=== PATIENT | female | born 1985 | race Caucasian/White ===

== ENCOUNTER 2019-11-02 07:38 | Outpatient (CLI) | payer OTHER, SELFPAY ==
--- NOTE | ~2019-11-02 | US_ITS ---
US thyroid INDICATION: Neck fullness by examination. TECHNIQUE: Real-time sonographic images of the thyroid gland were obtained. COMPARISON: No prior studies for comparison. FINDINGS: The right thyroid lobe measures 5.2 x 1.6 x 2.2 cm. The left thyroid lobe measures 4.7 x 0 .9 x 1.2 cm. There is heterogeneous thyroid echotexture bilaterally. There are complex cystic masses in the right lobe. Largest measures 2.7 x 1.7 x 1.6 cm which is mixed cystic and solid, anechoic, wid er than tall, smooth margined and no calcifications, TR 1-benign. The smaller masses next solid and c ystic, wider than tall, smooth margin and no echogenic foci. The mass measures 1.2 x 1.3 x 0.9 cm. Th e solid components or hypoechoic, TR 3 mildly suspicious. There is a solid 12 mm hypoechoic mass whic h is wider than tall, hypoechoic with ill-defined margins and a possible single macrocalcification, T R 4. Recommend follow-up ultrasound in 6-12 months. In the left lobe superiorly there is an 11 x 10 x 4 mm oval hypoechoic mass which is solid, hypoechoi c, wider than tall, smooth margin and no internal echoes, TR 4. IMPRESSION: 1. Multiple bilateral thyroid nodules, most most likely benign multinodular goiter. Recommend follow -up ultrasound in 6-12 months to assess stability. Reviewed, dictated and finalized at location A. IMPRESSION: 1. Multiple bilateral thyroid nodules, most most likely benign multinodular go iter. Recommend follow-up ultrasound in 6-12 months to assess stability.
== END 2019-11-02 07:39 | disposition home or self-care (01) ==
PROVIDERS: Visit Provider Obstetrics & Gynecology
DX: E04.2 Nontoxic multinodular goiter (principal)
CPT/HCPCS: 76536

== ENCOUNTER 2019-12-26 12:37 | Outpatient (CLI) | payer OTHER, SELFPAY ==
[2019-12-26 14:32] LABS: Basophils Absolute Auto 0.1 K/mm3 (0.0-0.1); Basophils Percent Auto 0.4 % (0.2-1.2); Eosinophils Absolute Auto 0.1 K/mm3 (0-0.3); Eosinophils Percent Auto 0.8 % (0-4.4); Hematocrit 40.3 % (37.0-47.0); Hemoglobin 13.5 g/dL (12.0-15.0); Immature Granulocyte Absolute 0.11 K/mm3 (0.00-0.031); Immature Granulocyte Percent A 0.7 % (0-0.5); Lymphocytes Absolute Auto 2.59 K/mm3 (0.9-3.2); Lymphocytes Percent Auto 16.4 % (18.3-44.2); Mean Corpuscular HGB Conc 33.5 g/dl (32-36); Mean Corpuscular Volume 89.6 fl (80-100); Mean Platelet Volume 10.5 fl (7.4-10.4); Monocytes Absolute Auto 1.3 K/mm3 (0.1-0.6); Neutrophils Absolute Auto 11.7 K/mm3 (1.3-6.7); Neutrophils Percent Auto 73.7 % (45.5-73.1); Platelet Count Result 275 k/mm3 (150-375); Red Cell Distribution Width 13.2 % (11.5-14.5); White Blood Count 15.8 K/mm3 (4.5-10.0)
[2019-12-26 14:46] LABS: Glucose 1 Hour PP 50gm Dose 92 mg/dL
[2019-12-26 15:28] LABS: HIV 1/2 Ab P24 Ag Result Negative (Negative)
[2019-12-27 07:21] LABS: Rapid Plasma Reagin Non-Reactive (NonReactive)
== END 2019-12-26 12:38 | disposition home or self-care (01) ==
LOC: ANHLAB 12:39
PROVIDERS: Visit Provider Obstetrics & Gynecology
DX: Z34.90 Encounter for supervision of normal pregnancy, unspecified, unspecified trimester (principal); Z3A.00 Weeks of gestation of pregnancy not specified
CPT/HCPCS: 36415; 82947; 85025; 86592; 86703; G0432

== ENCOUNTER 2020-02-07 16:02 | Outpatient (CLI) | payer OTHER, SELFPAY ==
--- NOTE | ~2020-02-07 | US_ITS ---
EXAMINATION: US OB follow up DATE: 02/07/2020 16:43 INDICATION: Size greater than dates during third trimester TECHNIQUE: Real-time ultrasound of the pelvis was performed. The interpreting radiologist was not pre sent for the study. COMPARISON: None. FINDINGS: There is a single living fetus in vertex presentation. The placenta is fundal. cardia c activity and movement are noted. heart rate is 134 beats per minute (bpm). The amniotic fluid index is 9.8 cm which is normal. The following biometric data were obtained: Biparietal diameter (BPD): 9.0 cm; head circumference (HC): 32.8 cm; abdominal circumference (AC): 32 .0 cm; femur length (FL): 6.8 cm. These measurements are concordant. Estimated weight is 2823 g +/- 423 g, which correlates with the 41st percentile when 03/04/2020 is used as estimated date of delivery. As single measurements, these parameters are each equal to the following estimated gestational ages w ith ranges of +/- 2 standard deviations: BPD: 36 weeks 4 days +/- 3 weeks 1 days. HC: 37 weeks 3 days +/- 2 weeks 5 days. AC: 36 weeks 0 days +/- 3 weeks 0 days. FL: 35 weeks 2 days +/- 3 weeks 0 days. estimated gestational age based solely on measurements from this exam is 36 weeks 2 days +/- 2 weeks 4 days. IMPRESSION: 1. Single living fetus in vertex presentation. 2. Estimated weight is 2823 g +/- 423 g, which correlates with the 41st percentile when 03/04/20 20 is used as estimated date of delivery. 3. Normal amniotic fluid index. Reviewed, dictated and finalized at location A. IMPRESSION: 1. Single living fetus in vertex presentation. 2. Estimated weight is 2823 g +/- 423 g, which correlates with the 41st p ercentile when 03/04/2020 is used as estimated date of delivery. 3. Normal amniotic fluid index.
== END 2020-02-07 16:03 | disposition home or self-care (01) ==
PROVIDERS: Visit Provider Obstetrics & Gynecology
DX: O26.843 Uterine size-date discrepancy, third trimester (principal)
CPT/HCPCS: 76816

== ENCOUNTER 2020-03-02 08:30 | Outpatient (RCR) | payer OTHER, SELFPAY ==
--- NOTE | ~2020-03-02 | US_ITS ---
EXAMINATION: US OB follow up DATE: 03/02/2020 10:02 INDICATION: Postdates. TECHNIQUE: Real-time ultrasound of the pelvis was performed. COMPARISON: Ultrasound 02/07/2020 FINDINGS: There is a single living fetus in vertex presentation. The placenta is fundal and posterior. h eart rate is 161 beats per minute (bpm). The amniotic fluid index is 11.7 cm, which is normal. The following biometric data were obtained: Biparietal diameter (BPD): 9.4 cm; head circumference (HC): 34.5 cm; abdominal circumference (AC): 35 .4 cm; femur length (FL): 6.1 cm. These measurements are discordant with FL/BPD < 5th percentile. Estimated weight is 3249 g +/- 487 g, which correlates with 23rd percentile when 03/03/20 is use d as estimated date of delivery. As single measurements, these parameters are each equal to the following estimated gestational ages: BPD: 38 weeks 3 days. HC: 40 weeks 0 days. AC: 39 weeks 2 days. FL: 31 weeks 4 days. estimated gestational age based solely on measurements from this exam is 37 weeks 2 days +/- 2 weeks 4 days. IMPRESSION: 1. Single living fetus in vertex presentation. 2. Estimated weight is 3249 g +/- 487 g, which correlates with 23rd percentile when 03/03/20 is used as estimated date of delivery. 3. Discordant biometrics with low FL/BPD. Reviewed, dictated and finalized at location A. IMPRESSION: 1. Single living fetus in vertex presentation. 2. Estimated weight is 3249 g +/- 487 g, which correlates with 23rd perc entile when 03/03/20 is used as estimated date of delivery. 3. Discordant biometrics with low FL/BPD.
[2020-03-02 09:22] VITALS: BP 112/73; PULSE 98
--- NOTE | 2020-03-02 10:38 | PC.NURSE ---
Dr Gallegos notified of US results.
== END 2020-03-17 13:46 | disposition home or self-care (01) ==
LOC: ANHOBOP 08:30
PROVIDERS: Visit Provider Obstetrics & Gynecology
DX: O48.0 Post-term pregnancy (principal); Z3A.39 39 weeks gestation of pregnancy
CPT/HCPCS: 59025; 76816

== ENCOUNTER 2020-03-08 18:19 | Inpatient (IN) | payer OTHER, SELFPAY ==
--- NOTE | ~2020-03-08 | XR_ITS ---
EXAMINATION: XR chest 1V portable INDICATION: Desaturation post section TECHNIQUE: Portable AP chest at 1648 hours COMPARISON: None available FINDINGS: The lungs are free of acute opacities. There is no pleural effusion or pneumothorax. The ca rdiomediastinal silhouette is normal. The visualized bones and soft tissues are unremarkable. IMPRESSION: 1. No acute cardiopulmonary abnormality. Reviewed, dictated and finalized at location B.
--- NOTE | 2020-03-08 19:00 | PC.NURSE ---
notations in patients chart about pt having a severe phobia of needles. pt verbally confirmed pt history regarding pt needle phobia. pt educated on plan of care and potentially what iv access would be used for. pt verbally consented for iv insertion and pt requested for pt to help keep pt arm in position during iv insertion.
[2020-03-08 20:00] VITALS: TEMP 37.1
[2020-03-08 20:18] LABS: Basophils Absolute Auto 0.1 K/mm3 (0.0-0.1); Basophils Percent Auto 0.3 % (0.2-1.2); Eosinophils Absolute Auto 0.1 K/mm3 (0-0.3); Eosinophils Percent Auto 0.5 % (0-4.4); Hematocrit 39.1 % (37.0-47.0); Hemoglobin 13.5 g/dL (12.0-15.0); Immature Granulocyte Absolute 0.09 K/mm3 (0.00-0.031); Immature Granulocyte Percent A 0.6 % (0-0.5); Lymphocytes Percent Auto 18.4 % (18.3-44.2); Mean Corpuscular HGB Conc 34.5 g/dl (32-36); Mean Corpuscular Hemoglobin 29.8 pg (26-34); Mean Corpuscular Volume 86.3 fl (80-100); Mean Platelet Volume 10.6 fl (7.4-10.4); Monocytes Absolute Auto 1.1 K/mm3 (0.1-0.6); Monocytes Percent Auto 6.7 % (2.6-8.5); Neutrophils Absolute Auto 11.6 K/mm3 (1.3-6.7); Neutrophils Percent Auto 73.5 % (45.5-73.1); Platelet Count Result 280 k/mm3 (150-375); Red Blood Count 4.53 M/mm3 (4.2-5.4); Red Cell Distribution Width 13.9 % (11.5-14.5); White Blood Count 15.8 K/mm3 (4.5-10.0)
[2020-03-08] MEDS: DINOPROSTONE 10 MG VAG INSERT VAGINAL (20:42)
[2020-03-08 20:59] VITALS: BP 95/68; PULSE 94
[2020-03-08 21:30] VITALS: BP 100/69; PULSE 79
[2020-03-08] MEDS: ZOLPIDEM TARTRATE 5 MG TABLET PO (21:54)
[2020-03-08 22:02] VITALS: BP 101/74; PULSE 93
--- NOTE | 2020-03-08 22:11 | LDADM ---
This patient, Ary Rodriguez, was admitted to Labor/Delivery/Recovery 108 on 03/08/20 at 18:19. Plans for labor, pain management and were discussed with patient. Patient/family oriented to hospital policies and general routines including ID bracelet, bed and alarms, visiting hours, pain management, procedures, bathroom and other care routines, personal items, smoking policy, room service/diet and guest tray routines, security routines, and visiting hours. Patient/Family are encouraged to report perceived risks to care and to ask questions if they do not understand what they are told or what they should do. See OBIX for further documentation.
[2020-03-08 22:30] VITALS: BP 95/59; PULSE 103
[2020-03-08 23:00] VITALS: TEMP 36.5
[2020-03-09] VITALS (219 sets, daily range): BP systolic 77–123; BP diastolic 52–91; PULSE 64–141; TEMP 36.3–37.3; O2SAT 88–100
--- NOTE | 2020-03-09 06:06 | P.PNAN_ITS ---
Anes - Eval Pre Procedure Procedure: labor epidural Date/Time: 03/09/20 06:06 Surgeon: El Preop Diagnosis: labor pain Pre Op Diagnosis: Induction of Labor Patient Data Age: 34 Gender: F Height: Weight: Last Vital Signs Temp 36.4 C L 03/09/20 05:51 Pulse 86 03/09/20 03:38 BP 108/64 03/09/20 03:38 Allergies Allergy/AdvReac Type Severity Reaction Status Date / Time adhesive Allergy Hives Verified 03/02/20 07:47 cat dander Allergy Difficulty Verified 03/02/20 07:47 Breathing thimerosal Allergy Unknown Verified 03/02/20 07:47 Home Medications Medication Instructions Recorded Confirmed Type PNV cmb#95-ferrous fumarate-FA 1 tablet PO DAILY 03/09/20 03/09/20 History [] Laboratory Tests 03/08/20 03/08/20 03/08/20 20:13 20:13 20:13 WBC 15.8 K/mm3 H K/mm3 (4.5-10.0) RBC 4.53 M/mm3 M/mm3 (4.2-5.4) Hgb 13.5 g/dL g/dL (12.0-15.0) Hct 39.1 % % (37.0-47.0) MCV 86.3 fl fl (80-100) MCH 29.8 pg pg (26-34) MCHC 34.5 g/dl g/dl (32-36) RDW 13.9 % % (11.5-14.5) Plt Count 280 k/mm3 k/mm3 (150-375) MPV 10.6 fl H fl (7.4-10.4) Immature Gran % (Auto) 0.6 % H % (0-0.5) Neut % (Auto) 73.5 % H % (45.5-73.1) Lymph % (Auto) 18.4 % % (18.3-44.2) [place] % (Auto) 6.7 % % (2.6-8.5) Eos % (Auto) 0.5 % % (0-4.4) Baso % (Auto) 0.3 % % (0.2-1.2) Lymph # (Auto) 2.90 K/mm3 K/mm3 (0.9-3.2) [place] # (Auto) 1.1 K/mm3 H K/mm3 (0.1-0.6) Eos # (Auto) 0.1 K/mm3 K/mm3 (0-0.3) Baso # (Auto) 0.1 K/mm3 K/mm3 (0.0-0.1) Abs Immat Gran (auto) 0.09 K/mm3 H K/mm3 (0.00-0.031) Absolute Neuts (auto) 11.6 K/mm3 H K/mm3 (1.3-6.7) Absolute Nucleated RBC 0.0 K/mm3 K/mm3 (0.0-0.012) Nucleated RBC % 0.0 % % (0.0-0.2) RPR Pending Blood Type O Positive Antibody Screen Negative Patient hx anesthesia problems: none Family hx anesthesia problems: none Prior Surgeries: [place] teeth extraction PMFSH Social History Social History Smoking status: Never smoker Alcohol intake: former Substance use: never Gender identity (if verbalized by the patient): Female Spiritual care concerns: No Exam Day of Procedure 03/09/20 06:06 Patient weight: overweight Heart: regular rate and rhythm Lungs: clear to auscultation and normal air movement Airway: Mallampati scale class II Neurological: alert and oriented
[2020-03-09] MEDS: LACTATED RINGERS 1,000 ML 125 ML IV CONT ×3 (08:13→14:31)
[2020-03-09] MEDS: AMPICILLIN 2 GM/NS 100 ML 2 GM/100 ML BAG IVPB (08:16)
--- NOTE | 2020-03-09 08:34 | PM.IMHP ---
H&P: HPI History of Present Illness Chief complaint: Induction of Labor Narrative: Ary Rodriguez is a 34 year old female at 40 6 with an EDC 03/02/20 by LMP 05/27/19 admitted for [facility] for post dates. U/S 08/19/19 12w1 03/01/20 consistent with EDC by LMP. Normal anatomy scan Mar. Last ultrasound 7lbs. PNC significant for severe needle phobia which she has had counseling and hyponotherapy which has not been successful. Has a goiter. Normal thyroid testing. Labs: Pap nl TSH nl, Hgbelec-nl, RPR-NR, Ur Cul-neg, Rub-NI, Varic-IM, O+, Ab neg, UA-neg, HIV neg.Hepbsag neg, Hep c ab neg. She has been informed of risk benefit of induction. She desires induction of labor. Review of Systems Review of Systems: All systems reviewed & are unremarkable except as noted in HPI and below Constitutional: Constitutional: Reports no additional constitutional complaints and Denies headache(s) Eyes: Eyes: Denies spots in vision ENT: Reports system reviewed and no additional complaints, except as documented and Denies headache(s) Cardiovascular: Cardiovascular: Denies chest pain and Denies dyspnea Respiratory: Respiratory: Denies dyspnea Gastrointestinal: Gastrointestinal: Reports no additional gastrointestinal complaints Genitourinary: Genitourinary: Reports amenorrhea Musculoskeletal: Musculoskeletal: Reports no additional musculoskeletal complaints Integumentary/Breasts: Skin/Breast: Denies breast mass and Denies rash Neurologic: Denies headache(s) Psychiatric: Psychiatric: Reports no additional psychiatric complaints COUNT INCLUDES THE [facility] Social History Social History Smoking status: Never smoker Alcohol intake: former Substance use: never Gender identity (if verbalized by the patient): Female Spiritual care concerns: No Meds Home Medications and Allergies Home Medications Medication Instructions Recorded Confirmed Type PNV cmb#95-ferrous fumarate-FA 1 tablet PO DAILY 03/09/20 03/09/20 History [] Allergies Allergy/AdvReac Type Severity Reaction Status Date / Time adhesive Allergy Hives Verified 03/02/20 07:47 cat dander Allergy Difficulty Verified 03/02/20 07:47 Breathing thimerosal Allergy Unknown Verified 03/02/20 07:47 Vital Signs Vital Signs - 24 hr 03/08/20 20:00 03/08/20 20:59 03/08/20 21:30 Temperature 98.7 F Pulse Rate 94 79 Blood Pressure 95/68 L 100/69 03/08/20 22:02 03/08/20 22:30 03/08/20 23:00 Temperature 97.7 F Pulse Rate 93 103 H Blood Pressure 101/74 95/59 L 03/09/20 00:49 03/09/20 03:35 03/09/20 03:38 Temperature 98.1 F Pulse Rate 95 86 Blood Pressure 105/71 108/64 03/09/20 05:51 03/09/20 07:00 03/09/20 07:10 Temperature 97.5 F L 97.5 F L Pulse Rate 94 Blood Pressure 115/79 Exam Const: General: no acute distress Eyes: General: appearance normal, both eyes and all related structures Resp: Effort & Inspection: normal respiratory effort Cardio: Rate: regular rate GI: Other: Gravid no fundal tenderness no right upper quadrant pain : Manual OB Exam: Not dilated nor effaced Skin: General skin exam: no rashes or lesions noted Neuro: Cognition (Neuro): normal cognition Extrem: General: normal to inspection Psych: Mental Status: mental status grossly normal H&P: Results Labs Labs: Short CBC 03/08/20 Range/Units 20:13 WBC 15.8 H (4.5-10.0) K/mm3 Hgb 13.5 (12.0-15.0) g/dL Hct 39.1 (37.0-47.0) % Plt Count 280 (150-375) k/mm3 Assessment and Plan Assessment and plan (1) Post-dates : Code(s): O48.0 - Post-term Status: Acute Assessment and Plan: 1. Admit 2. Cervidil then Pitocin. 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
--- NOTE | 2020-03-09 08:38 | P.PNOB_ITS ---
OB - PN: Subj Subjective Date/time seen: 03/09/20 08:38 FHT 120, Cat 1, frequent ctx, cervix 60/-3. Start Pitocin. Continue Ampicillin. OB - PN: Obj Data Labs CBC & Chem 7: 03/08/20 20:13 Labs: Laboratory Results - last 24 hr 03/08/20 03/08/20 20:13 20:13 WBC 15.8 H RBC 4.53 Hgb 13.5 Hct 39.1 MCV 86.3 MCH 29.8 MCHC 34.5 RDW 13.9 Plt Count 280 MPV 10.6 H Immature Gran % (Auto) 0.6 H Neut % (Auto) 73.5 H Lymph % (Auto) 18.4 [place] % (Auto) 6.7 Eos % (Auto) 0.5 Baso % (Auto) 0.3 Lymph # (Auto) 2.90 [place] # (Auto) 1.1 H Eos # (Auto) 0.1 Baso # (Auto) 0.1 Abs Immat Gran (auto) 0.09 H Absolute Neuts (auto) 11.6 H Absolute Nucleated RBC 0.0 Nucleated RBC % 0.0 Blood Type O Positive Antibody Screen Negative OB - PN A/P Time Spent With Patient Time: Total time spent is greater than 50% in coordination of care (as documented) at patient's floor/unit and/or counseling patient:
[2020-03-09] MEDS: OXYTOCIN 30 UNITS/NS 500 ML 30 UNITS/500 ML BAG 4 UNITS IV CONT (09:02)
[2020-03-09 10:06] LABS: Rapid Plasma Reagin Non-Reactive (NonReactive)
[2020-03-09] MEDS: AMPICILLIN 1 GM/NS 50 ML 1 GM/50 ML BAG IVPB ×2 (12:35→16:40)
--- NOTE | 2020-03-09 12:37 | WPDANESEPP ---
Anes - Eval Pre Procedure Procedure: labor epidural Date/Time: 03/09/20 12:37 Pre Op Diagnosis: Induction of Labor Patient Data Age: 34 Gender: F Height: Weight: Last Vital Signs Temp 37.1 C 03/09/20 11:31 Pulse 98 03/09/20 12:00 BP 98/61 L 03/09/20 12:00 Allergies Allergy/AdvReac Type Severity Reaction Status Date / Time adhesive Allergy Hives Verified 03/02/20 07:47 cat dander Allergy Difficulty Verified 03/02/20 07:47 Breathing thimerosal Allergy Unknown Verified 03/02/20 07:47 Home Medications Medication Instructions Recorded Confirmed Type PNV cmb#95-ferrous fumarate-FA 1 tablet PO DAILY 03/09/20 03/09/20 History [] Laboratory Tests 03/08/20 03/08/20 03/08/20 20:13 20:13 20:13 WBC 15.8 K/mm3 H K/mm3 (4.5-10.0) RBC 4.53 M/mm3 M/mm3 (4.2-5.4) Hgb 13.5 g/dL g/dL (12.0-15.0) Hct 39.1 % % (37.0-47.0) MCV 86.3 fl fl (80-100) MCH 29.8 pg pg (26-34) MCHC 34.5 g/dl g/dl (32-36) RDW 13.9 % % (11.5-14.5) Plt Count 280 k/mm3 k/mm3 (150-375) MPV 10.6 fl H fl (7.4-10.4) Immature Gran % (Auto) 0.6 % H % (0-0.5) Neut % (Auto) 73.5 % H % (45.5-73.1) Lymph % (Auto) 18.4 % % (18.3-44.2) [place] % (Auto) 6.7 % % (2.6-8.5) Eos % (Auto) 0.5 % % (0-4.4) Baso % (Auto) 0.3 % % (0.2-1.2) Lymph # (Auto) 2.90 K/mm3 K/mm3 (0.9-3.2) [place] # (Auto) 1.1 K/mm3 H K/mm3 (0.1-0.6) Eos # (Auto) 0.1 K/mm3 K/mm3 (0-0.3) Baso # (Auto) 0.1 K/mm3 K/mm3 (0.0-0.1) Abs Immat Gran (auto) 0.09 K/mm3 H K/mm3 (0.00-0.031) Absolute Neuts (auto) 11.6 K/mm3 H K/mm3 (1.3-6.7) Absolute Nucleated RBC 0.0 K/mm3 K/mm3 (0.0-0.012) Nucleated RBC % 0.0 % % (0.0-0.2) RPR Non-reactive (NonReactive) Blood Type O Positive Antibody Screen Negative Patient hx anesthesia problems: none Family hx anesthesia problems: none PMFSH Social History Social History Smoking status: Never smoker Alcohol intake: former Substance use: never Gender identity (if verbalized by the patient): Female Spiritual care concerns: No Exam Day of Procedure 03/09/20 12:37
[2020-03-09] MEDS: PHENYLEPHRINE 1,000 MCG/10 ML SYRINGE 100 MCG IV PUSH (13:29)
--- NOTE | 2020-03-09 16:38 | PM.OBPNVD ---
OB - PN: Subj Subjective Date/time seen: 03/09/20 16:38 FHT 130, ctx q 1-4, irreg, frequent, cervix /-2 AROM clear, attempted IUPC but catheter would not advance. Continue Pitocin. She has received two doses Ampicillin. OB - PN: Obj Data Labs CBC & Chem 7: 03/08/20 20:13 Labs: Laboratory Results - last 24 hr 03/08/20 03/08/20 03/08/20 20:13 20:13 20:13 WBC 15.8 H RBC 4.53 Hgb 13.5 Hct 39.1 MCV 86.3 MCH 29.8 MCHC 34.5 RDW 13.9 Plt Count 280 MPV 10.6 H Immature Gran % (Auto) 0.6 H Neut % (Auto) 73.5 H Lymph % (Auto) 18.4 [place] % (Auto) 6.7 Eos % (Auto) 0.5 Baso % (Auto) 0.3 Lymph # (Auto) 2.90 [place] # (Auto) 1.1 H Eos # (Auto) 0.1 Baso # (Auto) 0.1 Abs Immat Gran (auto) 0.09 H Absolute Neuts (auto) 11.6 H Absolute Nucleated RBC 0.0 Nucleated RBC % 0.0 RPR Non-reactive Blood Type O Positive Antibody Screen Negative OB - PN A/P Time Spent With Patient Time: Total time spent is greater than 50% in coordination of care (as documented) at patient's floor/unit and/or counseling patient:
[2020-03-10] VITALS (291 sets, daily range): BP systolic 67–129; BP diastolic 21–92; PULSE 68–242; RESP 16–21; TEMP 36.2–37.4; O2SAT 87–100
[2020-03-10] MEDS: AMPICILLIN 1 GM/NS 50 ML 1 GM/50 ML BAG IVPB ×4 (00:01→12:53)
[2020-03-10] MEDS: ONDANSETRON INJ 4 MG/2 ML VIAL IV PUSH (00:01)
[2020-03-10] MEDS: LACTATED RINGERS 1,000 ML 125 ML IV CONT ×3 (00:02→11:41)
--- NOTE | 2020-03-10 07:41 | PM.OBPNVD ---
OB - PN: Subj Subjective Date/time seen: 03/10/20 07:41 FHT 130, Cat1, ctx q 2-5, cervix, ant lip, 90% effaced, 0 station. Continue Pitocin. OB - PN: Obj Data Labs CBC & Chem 7: 03/08/20 20:13 Labs: Laboratory Results - last 24 hr 03/08/20 20:13 RPR Non-reactive OB - PN A/P Time Spent With Patient Time: Total time spent is greater than 50% in coordination of care (as documented) at patient's floor/unit and/or counseling patient:
--- NOTE | 2020-03-10 13:38 | PM.OBPNVD ---
OB - PN: Subj Subjective Date/time seen: 03/10/20 13:38 FHT 140, Cat 2, ant lip/ large caput, OT. Discussed diagnosis of failure to progress. She has not had any further dilation in 6 hours. Recommend cesearean section for failure to dilate. Discussed risk benefits of cesearean section and risk of continuing pitocin. We did discuss during her care risk that if she has a cesearean section then she wants a tubal ligation. I today discussed risk of tubal ligation again to include failure, ectopic , risk of regret. She does not want the chance of an ectopic . I discussed with her that other options. She declined tubal and wants to get vasectomy. Will proceed with primary cesearean section for failure to progress. OB - PN: Obj Data Labs CBC & Chem 7: 03/08/20 20:13 OB - PN A/P Time Spent With Patient Time: Total time spent is greater than 50% in coordination of care (as documented) at patient's floor/unit and/or counseling patient:
[2020-03-10] MEDS: ceFAZolin 2 GM/D5W 50 ML 2 GM/50 ML BAG IVPB (13:47)
[2020-03-10] MEDS: MORPHINE SULFATE 2 MG/ML INJ 1 MG IV PUSH ×2 (15:43→15:52)
[2020-03-10] MEDS: MEPERIDINE HCL INJ 50 MG/ML AMPUL IV PUSH (16:13)
--- NOTE | 2020-03-10 16:15 | P.OP_ITS ---
Procedure Note - Detailed Date of procedure: 03/10/20 Pre-op diagnosis: Induction of Labor 1. Failure to dilate Post-op diagnosis: same Procedure performed: Primary low transverse cesearean Description of procedure: After informed consent was obtained. Patient was taken to OR. Epidural anesthesia was dosed and she was placed in supine position and prepped and draped in sterile fashion. She had appropriate analgesia to umbilicus .Attention was turned to abdomen and a Pfannestiehl skin incision was made with scalpel. Subcutaneous tissue was incised and disssected down to fascia. Fascia was incised in the midline and extended bilaterally with scissors. Rectus muscle was from fascia superiorly and inferiorly bluntly and sharply. The midline was identified and entered superiorly. The pelvic organs were visualized. The bladder was distended. The bladder was retracted and an incision was made in the anterior vesicouterine periotoneum and the bladder was dissected anteriorly from the lower uterine segment. A low transverse uterine incision was made with the scalpel. The amniotic sac was entered. Clear fluid obtained. The head was delivered. The rest of the infant was delivered. The infant was vigorously crying on delivery and the cord was doubly clamped and cut and the infant was handed to nursery staff in attendance. Cord segment was obtained. Cord blood was obtained. The placenta was delivered manually. The uterine cavity was sponge curretted. The uterine incision was closed with O vicryl in a running locking fashion. A second umbricating stitch with O vicryl was used. Hemostasis was noted. She did have uterine atony bilateral compression was used and anesthesia was instructed to give her 0.2mg IM Methergine. This did improve but body of uterus became boggy again and she was given 1000mcg cytotec rectally. Uterine tone improved. I instructed nursing staff to instill saline with methylene blue in bladder since it appeared distended on entrance. Approximately 300cc instilled. No methylene blue seen in abdomen. The posterior cul de sac and paracolic gutters were irrigated. Uterus placed back into abdomen. Muscle bellies inspected and were hemostatic. Fascia closed with 2 sutures of O vicryl. A figure of eight stitch used to enforce an area at the fascia. Hemostasis noted. Subcutaneous tissue irrigated. Skin incision closed in a subcutaneous fashion with 4.0 vicryl. Derm abond placed. Uterus firm at umbilicus. Sponge count correct x 3. Patient tolerated procedure and was taken to recovery. She delivered a male , 8lb 13 oz. Anesthesia: epidural Surgeon: Jon Gallegos MD Estimated blood loss (mL): 815 Drains: No Packing: No Pathology: yes (Placenta and cord, placenta very calcified. True knot in cord.) Complications: No immediate complications Condition: stable Disposition: floor Findings: Infant in OT position. Male 8lb 15oz. Normal fallopian tubes and ovaries. Placenta very calcified.
--- NOTE | 2020-03-10 16:32 | PM.OBPNVD ---
OB - PN: Subj Subjective Date/time seen: 03/10/20 16:32 Called due to patient having decrease in O2Sat to 85% when she went sleep. She states it feels like she needs to need and can't. Urine out put good. On exam has some coarse breath sounds/crackles upper left chest. Clear lower. Will give 40 IV Lasix. EKG ordered. CXR. Resp therapy for Incentive spirometer. Denies leg pain. OB - PN: Obj Data Labs CBC & Chem 7: 03/08/20 20:13 OB - PN A/P Time Spent With Patient Time: Total time spent is greater than 50% in coordination of care (as documented) at patient's floor/unit and/or counseling patient:
--- NOTE | 2020-03-10 16:35 | ECG_ITS ---
Measurements Intervals [place] Rate: 81 P: 63 AR: 165 QRS: 70 QRSD: 94 T: 51 QT: 363 QTc: 423 Interpretive Statements SINUS RHYTHM BASELINE WANDER- I, II, III, AVR, AVF, V1, V6 BORDERLINE ECG Electronically Signed On 03-10-2020 17:55:16 CDT by Abelino Dill D.O.
[2020-03-10] MEDS: FUROSEMIDE INJ 40 MG/4 ML VIAL IV PUSH (16:45)
[2020-03-10] MEDS: OXYTOCIN 30 UNITS/NS 500 ML 30 UNITS/500 ML BAG 4 UNITS IV CONT (16:51)
--- NOTE | 2020-03-10 18:41 | PC.NURSE ---
Arrived in pacu at 1509, patient not arousable, on 5 L of 02 per non rebreather. Vitals stable. at 1524, patient moaning, crying, shaking with pain. Morphine 1 mg given at 1547, and 1 mg given at 1552. Pain not decreasing after administration. Demerol 50 given at 1613. Around 1630, patient sats 85-89, Dr. Gallegos called to room. Lung sounds crackles. Patient states she isnt short of breath. Orders for incentive spirometry, EKG and chest x ray stat, 40 mg lasix IV once. Lasix given at 1645. urine 1250 emptied at 1655. DERRICK OPERATOR ordered for patient pain. 1700 Patient sats increasing to 90's on 5 l non rebreather now. 1723- DERRICK OPERATOR started. 1730, nasal cannula placed on patient, 02 sats staying in 90's on 2 L per nasal cannula. 1800- urine 1200 emptied, underpads changed. oxygen decreased to 1L per nasal cannula. Report given to YESIKA Baer on .
[2020-03-10] MEDS: DEXTROSE 5%/0.45% SOD CHL 1,000 ML 125 ML IV CONT (21:00)
--- NOTE | 2020-03-10 22:42 | PC.NURSE ---
03/10/20 @ 1902 Mom arrived to floor via stretcher, transferred to hospital bed via maxi air with 3 nurses. Infant arrived via crib pushed by dad along with personal belongings. Oriented to room, call light, admission packet reviewed and call light within reach. Stefanie NAPOLES
[2020-03-11 00:15] VITALS: BP 107/73; PULSE 87; RESP 18; O2SAT 96
[2020-03-11 02:50] VITALS: RESP 20; O2SAT 97
[2020-03-11] MEDS: KETOROLAC 30 MG/ML VIAL (*BKC) IV PUSH (03:01)
--- NOTE | 2020-03-11 04:14 | PC.NURSE ---
03/10/20 2100 Patient encouraged to reposition in bed, she declines, also declines any use of COUNTY CORONER or other pain medications. She did use her incentive spirometer. Stefanie NAPOLES 03/10/20 2300 Patient again encouraged to reposition in bed, she declines, did sit up in bed, SCD's remain on. Incentive spirometer used. Call light in reach. Stefanie NAPOLES 03/11/20 0130 Patient denies any pain or use of COUNTY CORONER pump. States she doesn't want to use it, it made her feel groggy. Offered to sit up for awhile, she states she is afraid to move, encouraged incentive spirometer every 2 hours. VSS. Call light in reach. Stefanie NAPOLES 03/11/20 0250 Urine output is good, tolerating po fluids, IV fluids stopped, Fentanyl COUNTY CORONER discontinued with no use at all, patient does not want to use it. IV saline locked. Patient encouraged to get up but she is afraid to move. Discussed trying Toradol and she agrees. Stefanie NAPOLES 03/11/20 0301 Toradol give IVP, patient very anxious about IV use and almost tearful but tolerated it. Stefanie NAPOLES 03/11/20 0400 Patient feeling better and agreeable to get up in chair with assist of 2 RN's. She tolerated it well and feels much better getting up. Incentive spirometer use encouraged again. Patient also has an order for a CBC and she absolutely declines. states the doctor had mentioned getting labs through IV previously. Patient states she has enough blood and she's feeling fine. She is very anxious about any needles. Offered smallest needle available and she still declines, she and will discuss lab draw with Dr. Gallegos this am. Stefanie NAPOLES
[2020-03-11 04:15] VITALS: BP 97/62; PULSE 80; RESP 18; TEMP 36.8; O2SAT 96
--- NOTE | 2020-03-11 07:37 | WPDANLDPN2 ---
Anes-Prog Note L&D Date/Time: 03/11/20 07:37 Comfortable throughout: labor and delivery Epidural/Spinal procedure site: clean & non-tender Neuro status: Neuro function grossly intact. Cardiovascular status: normal Respiratory status: normal Airway patency: baseline Mental status: baseline Post-Op hydration status: normal Vital Signs: Last Vital Signs Temp 36.8 C 03/11/20 04:15 Pulse 80 03/11/20 04:15 Resp 18 03/11/20 04:15 BP 97/62 L 03/11/20 04:15 Pulse Ox 96 03/11/20 04:15 I/O: Intake & Output 03/10/20 03/10/20 03/11/20 15:59 23:59 07:59 Intake Total 3450 891 0348 Output Total 3917 2150 Balance 1949 -3112 -001 Post-procedural complaints: none Patient feedback: Patient satisfied with anesthetic care.
--- NOTE | 2020-03-11 07:37 | WPDANLDNPN2 ---
Anes-Prog Note L&D-Neuraxial Date/Time: 03/11/20 07:37 Neuraxial medications: intrathecal PF morphine Opiod-related complaints: none Patient feedback: Patient satisfied with post-operative pain management.
[2020-03-11 08:10] VITALS: BP 94/70; PULSE 88; RESP 16; TEMP 36.2; O2SAT 96
[2020-03-11] MEDS: ACETAMINOPHEN 325 MG TABLET 650 MG PO ×3 (09:13→23:30)
[2020-03-11] MEDS: IBUPROFEN 600 MG TABLET PO ×3 (09:14→23:30)
[2020-03-11] MEDS: DOCUSATE SODIUM 100 MG CAPSULE PO ×2 (09:15→15:56)
[2020-03-11] MEDS: SIMETHICONE 80 MG TAB.CHEW PO ×3 (09:17→23:32)
[2020-03-11 11:15] VITALS: BP 96/62; PULSE 87; RESP 16; TEMP 36.6; O2SAT 97
--- NOTE | 2020-03-11 11:45 | PC.NURSE ---
Consult with pt., mother reports she may wish to attempt infant to breast at some time this afternoon. Mother states she is unsure if she wants to breastfeed or she may pump and bottle feed. Discussed initiating pumping to stimulate milk supply. Mother states she will call out for assist when she decides.
--- NOTE | 2020-03-11 13:09 | PM.OBPNVD ---
OB - PN: Subj Subjective Date/time seen: 03/11/20 0745 She states her pain control is doing well, has sat up in chair, no flatus. Tolerating liquids. No lightheadedness /dizziness. No SOB No chest pain. OB - PN: Obj Data Labs CBC & Chem 7: 03/08/20 20:13 Imaging Radiologist's impression: Impressions Chest X-Ray 03/10/20 16:50 IMPRESSION: 1. No acute cardiopulmonary abnormality. OB - PN A/P Assessment and Plan (1) care following delivery: Code(s): Z39.2 - Encounter for routine follow-up Status: Acute Assessment and Plan: POD1. S/p Primary c/section for failure to progress. She has adequate pain control. She refused getting a CBC. I discussed with her why a post op cbc is ordered and risk of not having the value. She still doesn't want it done. She is urinating well. Will give oral pain medication. Encourage ambulation. Continue liquid diet until flatus. Time Spent With Patient Time: Total time spent is greater than 50% in coordination of care (as documented) at patient's floor/unit and/or counseling patient: Exam Const: General: comfortable and no acute distress Resp: Effort & Inspection: normal respiratory effort Auscultation: clear to auscultation bilaterally Cardio: Rate: regular rate GI: Other: active bowel sounds, sligthly distended, incision no drainage or erythema, intact Extrem: Other: 2+ edema bilat, neg brandy's bilaterally Psych: Mental Status: mental status grossly normal Affect: normal affect
[2020-03-11 19:18] VITALS: BP 105/73; PULSE 89; RESP 16; TEMP 36.4; O2SAT 96
[2020-03-12 07:50] VITALS: BP 102/67; PULSE 72; RESP 16; TEMP 36.6; O2SAT 98
--- NOTE | 2020-03-12 09:05 | PC.NURSE ---
Addendum entered by Dolores Pérez RN 03/17/20 10:02: time done at 1010 Original Note: Mother called out for assist with latching. Demonstrated stimulation techniques to wake for feeding. Assisted with to breast. Reviewed positioning/alignment in cross cradle, holding breast in U hold and guided asymmetrical latch on. Several attempts before infant was able to latch correctly. nursed eagerly, with steady draws and frequent swallowing noted, with long pausing. Reviewed signs of a correct latch, effective nursing and suck swallow ratio. Infant was able to maintain latch without discomfort to mother. Nipple care reviewed. Advised to stimulate to keep awake and nursing effectively for increased intake and assist with maintaining deep latch. Demonstrated how to adjust latch more deeply while feeding.
--- NOTE | 2020-03-12 09:50 | PC.NURSE ---
Mother called out and states she will mostly likely pump and bottle feed. Assisted mother with her Spectra breast pump.. Instructions given on breast pump care and usage, pumping schedule, nipple care, and collection and storage of breast milk. Encouraged [id number], breast massage and manual expression to stimulate supply. Pumping log provided and reviewed. Assessed patient for correct flange size, placement and draw. Patient verbalizes and demonstrates understanding of instructions.
[2020-03-13 13:44] VITALS: BP 119/77; PULSE 72; RESP 20; TEMP 36.4; O2SAT 99
--- NOTE | 2020-04-02 07:46 | PM.OBDSVD ---
DS: Admitting Diagnosis Admitting Diagnosis Admitting Diagnosis: Induction of Labor DS: Discharge Diagnosis Discharge Diagnosis (1) Failure to progress in labor: Code(s): O62.2 - Other uterine inertia Status: Acute OB - DS: Summary OB Procedures : Ultrasound OB Procedures Intrapartum: low cervical, transverse OB Procedures: : None Peripartum Data Procedures: Procedures Operation Date: 03/10/20 13:45 Actual Procedures Side Surgeon p Section Jon Gallegos MD Time Spent with Patient Time attestation: Total time spent providing and/or coordinating discharge services: Exam Const: General: comfortable and no acute distress Resp: Effort & Inspection: normal respiratory effort GI: Other: Incision healing well no drainage Extrem: Other: nontender bilaterally, 1+ edema bilat Psych: Mental Status: mental status grossly normal Affect: normal affect DS: Data Data Completed and Pending Completed studies during hospitalization: Pending at discharge 03/10/20 14:11 Surgical [PTH] Routine Discharge Plan Discharge Attending physician on discharge: Jon Gallegos Consulting providers: Abelino Dill ; Antonio Feliz Discharging Clinician: Jon Gallegos Anticipated Discharge Date/Time: 03/12/20 11:09 Patient Disposition: Home, Self-Care Activity: no straining, may drive after 2 weeks and pelvic rest Diet: regular Discharge Instructions: Pelvic rest for 6 weeks. Call for temperature >100.4, drainage or redness from incision, leg pain,redness,. Follow up in one week. No lifting more than ten pounds. May take over the counter Ibuprofen 600mg every 6 hours as needed and/or Tylenol. Education: Mom and Baby Guide Given to: Mother Follow-Up: Call your delivering provider's office for an appointment to be seen. Mom and baby should come to the [facility] for the follow-up appointment. Appointment Date/Time: March 13, 2020 at 8:00 am What to expect at your follow-up visit: Physical Assessment Call [phone] if you are unable to keep your appointment time. BREAST CARE: * Wear a snug supportive bra. * For engorgement discomfort: Breast Feeding: * Apply warm moist washcloths * Express milk as needed to relieve engorgement * Wear loose clothing * For sore nipples: * Identify correct latch-on * Apply warm moist washcloths before and after nursing * Air dry nipples after nursing * May apply Lansinoh cream to nipples ABDOMINAL INCISION: * Allow incision to air dry * Do NOT use lotions for powders on your incision * When showering, allow soap and water to run over the incision, but do not wash incision EPISIOTOMY/PERINEAL CARE: * Until bleeding stops, use your jennie bottle after urinating * Change your pad frequently throughout the day * No tub baths until seen by your physician - You may shower ACTIVITY: * Rest as much as possible. * Do not exercise or lift anything heavier than your baby (such as laundry or other children.) * Avoid stairs or driving as much as possible. * Do not put anything into the vagina. No douching, tampons, or sexual activity until seen by physician. NOTIFY PHYSICIAN IF YOU HAVE ANY QUESTIONS OR IF ANY OF THE FOLLOWING SYMPTOMS OCCUR: * If your incision becomes red, swollen, or more painful than what you have experienced in the hospital. * If your vaginal bleeding becomes foul smelling. * If your vaginal bleeding becomes more heavy than a period or if your bleeding changes from pink to bright red. However, you may pass an occasional walnut-sized clot once or twice for the first week . * If you experience a sharp, shooting pain in you calves. * If you discover a hard, reddened area on your breast or if you experience flu-like symptoms. DIET: * Eat regular, well-balanced meals. * Drink plenty of fluids daily. If breast
== END 2020-03-12 15:12 | disposition home or self-care (01) | DRG 788 ==
LOC: ANHLDR 03-10 16:37 → ANHOB2 03-10 19:06
PROVIDERS: Admitting Provider Obstetrics & Gynecology; Visit Provider Obstetrics & Gynecology
PROC: 10D00Z1 Extraction of Products of Conception, Low, Open Approach (ICD-10-PCS; CPT 59514; principal; 2020-03-10 13:45)
DX: O48.0 Post-term pregnancy (principal); Z37.0 Single live birth; Z3A.41 41 weeks gestation of pregnancy; O99.824 Streptococcus B carrier state complicating childbirth; O69.2XX0 Labor and delivery complicated by other cord entanglement, with compression, not applicable or unspecified; O99.284 Endocrine, nutritional and metabolic diseases complicating childbirth; E04.9 Nontoxic goiter, unspecified; O62.0 Primary inadequate contractions; O62.2 Other uterine inertia
CPT/HCPCS: 36415; 71045; 85025; 86592; 86850; 86900; 86901; 88307; 93005; A9270; J0290; J0690; J1885; J1940; J2175; J2210; J2270; J2274; J2370; J2405; J2590; J2704; J2795; J3010; J7120; Q9968

== ENCOUNTER 2020-10-27 16:35 | Outpatient (CLI) | payer OTHER, SELFPAY ==
--- NOTE | ~2020-10-27 | US_ITS ---
EXAMINATION: US thyroid DATE: 10/27/2020 17:24 INDICATION: Multinodular goiter. TECHNIQUE: Multiple ultrasound images of the thyroid were obtained. COMPARISON: Ultrasound 11/02/2019 FINDINGS: The right thyroid lobe measures 5.4 x 2.4 x 1.9 cm. The left thyroid lobe measures 4.9 x 1.5 x 1.2 c m. In the right thyroid lobe, there is a 3.1 cm almost completely cystic nodule (TI-RADS TR1). In th e right thyroid lobe, there is a 12 mm mixed cystic and solid, hypoechoic, [id number]-[id number] nodule wit h lobulated margin without echogenic foci (TR4). In the left thyroid lobe, there is a 10 mm almost co mpletely solid, hypoechoic, [id number] nodule with lobulated margin without echogenic foci (TR4) . There are multiple subcentimeter nodules in the thyroid. IMPRESSION: 1. Multinodular goiter. Thyroid ultrasound is recommended in one year. Reviewed, dictated and finalized at location A.
== END 2020-10-27 16:36 | disposition home or self-care (01) ==
PROVIDERS: Visit Provider Obstetrics & Gynecology
DX: E04.2 Nontoxic multinodular goiter (principal)
CPT/HCPCS: 76536

== ENCOUNTER → 2021-03-09 00:41 | Outpatient (CLI) | payer OTHER, SELFPAY ==
[2021-03-09 20:36] LABS: SARS-CoV-2 RNA PCR Negative
== END ==
PROVIDERS: Visit Provider Obstetrics & Gynecology
DX: Z20.822 Contact with and (suspected) exposure to COVID-19 (principal)
CPT/HCPCS: C9803; U0003; U0005

== ENCOUNTER 2021-03-12 01:11 | Day surgery (SDC) | payer OTHER, SELFPAY ==
[2021-03-09 12:59] VITALS: BMI 23.4
--- NOTE | 2021-03-11 16:06 | PM.IMHP ---
H&P: HPI History of Present Illness Date/Time: 03/11/21 16:06 Patient with ASCUS pap pos HR HPV. Subsequent colpo biopsy showed CIN2. She was recommended for LEEP. Chief Complaint: CIN2 Review of Systems Review of Systems: All systems reviewed & are unremarkable except as noted in HPI and below Cardiovascular: Cardiovascular: Reports no additional cardiovascular complaints, Denies chest pain and Denies dyspnea Respiratory: Respiratory: Reports no additional respiratory complaints and Denies dyspnea Gastrointestinal: Gastrointestinal: Reports abdominal pain, Denies change in bowel habits, Denies diarrhea, Denies nausea and Denies vomiting Genitourinary: Genitourinary: Reports pelvic pain Musculoskeletal: Musculoskeletal: Reports back pain Integumentary/Breasts: Skin/Breast: Reports system reviewed and no additional complaints, except as docu Neurologic: Reports system reviewed and no additional complaints, except as documented PMFSH Past Medical History Medical History Abnormal Pap smear of cervix 01/26/21, ASC-H, HPV pos Goiter Surgical History Surgical History History of section x1 History of colposcopy 02/10/21, TIFFANY 2 [place] teeth removed Family History Family History Mother Hypertension Social History Social History Smoking status: Never smoker Alcohol intake: current Drinks per week: 3 Alcohol use details: stopped when found out Substance use: never Living arrangements: with family Gender identity (if verbalized by the patient): Female Spiritual care concerns: No Meds Home Medications and Allergies Home Medications Medication Instructions Recorded Confirmed Type cholecalciferol (vitamin D3) 125 125 mcg PO DAILY 01/26/21 03/12/21 History mcg (5,000 unit) capsule mecobalamin (vitamin B12) 1,000 1,000 mcg PO DAILY 01/26/21 03/12/21 History mcg chewable tablet multivitamin 1 tablet PO DAILY 01/26/21 03/12/21 History diazepam 5 mg tablet 5 mg PO BID PRN #2 tablet 07/29/21 07/30/21 Rx ibuprofen 800 mg PO Q6H PRN 03/12/21 03/12/21 History Allergies Allergy/AdvReac Type Severity Reaction Status Date / Time adhesive Allergy Hives Verified 03/12/21 07:00 cat dander Allergy Difficulty Verified 03/12/21 07:00 Breathing thimerosal Allergy Unknown Verified 03/12/21 07:00 Exam Const: Orientation/consciousness: oriented to person and oriented to place HENMT: Head: normal to inspection Eyes: General: appearance normal, both eyes and all related structures Resp: Effort & Inspection: normal respiratory effort Auscultation: clear to auscultation bilaterally Cardio: Rate: regular rate Rhythm: regular rhythm GI: Inspection: normal to inspection GI Palp: No Rebound tenderness present Neuro: General: oriented to person and oriented to place Cognition (Neuro): normal cognition Extrem: General: normal to inspection Psych: Appearance: grossly normal and well kempt Assessment and Plan Assessment and plan (1) TIFFANY II (cervical intraepithelial neoplasia II): Code(s): N87.1 - Moderate cervical dysplasia Status: Acute Assessment and Plan: LEEP
[2021-03-12 07:12] VITALS: BP 96/78; PULSE 74; RESP 18; TEMP 36.5; O2SAT 99; BMI 24.5
--- NOTE | 2021-03-12 07:15 | WPDHPUPDATE1 ---
History and Physical Update Update Date/Time: 03/12/21 07:15 History and Physical has been reviewed, including an updated exam of the patient. There are NO changes in the patient's condition. Risks, benefits, and alternatives have been discussed and questions answered. Patient agrees to proceed with procedure.
--- NOTE | 2021-03-12 07:23 | SUR.PREOP ---
0700; PT ANXIOUS. TOOK VALIUM THIS AM DIRECTED. STATES SHE FEELS TIRED. SPOUSE WITH PT
[2021-03-12 07:31] VITALS: BP 109/70; PULSE 86; RESP 26; O2SAT 100
[2021-03-12 07:41] VITALS: BP 115/63; PULSE 93; RESP 28; O2SAT 100
[2021-03-12 07:47] VITALS: BP 101/71; PULSE 74; RESP 16
[2021-03-12] MEDS: LIDO 1%/EPINEPHRINE 1:100,000 20 ML VIAL 10 ML INFILTRATE (07:51)
--- NOTE | 2021-03-12 08:21 | W.PM.PROC2 ---
Procedure Note - Detailed Date of Procedure 03/12/21 Pre-op Diagnosis moderate cervical dysplasia, abnormal findings Post-op Diagnosis same (CIN2) Procedure Performed LEEP Surgeon Jon Gallegos MD Anesthesia local Indications CIN2 on colposcopy cervical biopsy Findings Decreased uptake of Lugols at 7-5 and 1 Description of Procedure After informed consent was obtained. She was placed in high lithotomy position and prepped. Speculum inserted. Lugols solution placed on cervix. Hypopigmentation noted at 7-5 oclock and 1 oclock. 10cc of 1% lidocaine plain was injected at cervix at 2,5,8,10 oclock. The LEEP was passed encompassing transformation zone. Another pass anteriorly was performed to include all of the hypopigmented area. The area was cauterized with rollerball. Hemostasis noted. Monsels solution placed on cervix. Speculum removed. Patient tolerated procedure well. Estimated Blood Loss 5 Drains No Packing No Pathology yes (LEEP enclosing transformation zone and an anterior pass encompassing the hypopigmented area) Complications None
== END 2021-03-12 08:25 | disposition home health service (06) ==
PROVIDERS: Visit Provider Obstetrics & Gynecology
PROC: 0UBC7ZZ Excision of Cervix, Via Natural or Artificial Opening (ICD-10-PCS; CPT 57522; principal; 2021-03-12 07:30)
DX: N87.0 Mild cervical dysplasia (principal); R87.810 Cervical high risk human papillomavirus (HPV) DNA test positive; E04.9 Nontoxic goiter, unspecified
CPT/HCPCS: 57522; 88305; A9270; C9803; U0003; U0005

== ENCOUNTER 2022-03-10 16:32 | Outpatient (CLI) | payer OTHER, SELFPAY ==
--- NOTE | ~2022-03-10 | US_ITS ---
US thyroid INDICATION: Nontoxic goiter. TECHNIQUE: Real-time sonographic images of the thyroid gland were obtained. COMPARISON: Ultrasound dated 10/27/2020 FINDINGS: The right thyroid lobe measures 6.3 x 2.2 x 2.5 cm. The left thyroid lobe measures 5.4 x 1 .5 x 1.3 cm. There is heterogeneous echotexture throughout both lobes of the thyroid gland. Right lobe: In the right lobe there is an almost completely cystic mass measuring 3.3 cm maximum dime nsion, TR1. Also in the right lobe there is an oval hypoechoic mass measuring 2 x 1.1 x 0.9 cm which is solid, hypoechoic, wider than tall, smoothly marginated, TR 4. This is larger than on prior examin ation. Left lobe: In the left lobe there are multiple masses some of which are cystic. The largest mixed katya id and cystic mass of the left lobe measures 1.7 x 1.4 x 0.6 cm, hypoechoic, wider than tall, smoothl y marginated without echogenic foci, TR 3. IMPRESSION: 1. Multinodular goiter. Increased size of dominant solid mass in the right lobe measuring up to 2 cm , TR 4. Ultrasound-guided fine-needle aspiration biopsy recommended. Reviewed, dictated and finalized at location A. IMPRESSION: 1. Multinodular goiter. Increased size of dominant solid mass in the right lob e measuring up to 2 cm, TR 4. Ultrasound-guided fine-needle aspiration biopsy r ecommended.
== END 2022-03-10 16:33 | disposition home or self-care (01) ==
PROVIDERS: Visit Provider Obstetrics & Gynecology
DX: E04.2 Nontoxic multinodular goiter (principal)
CPT/HCPCS: 76536

== ENCOUNTER 2022-06-12 13:10 | Emergency (ER) | payer OTHER, SELFPAY ==
[2022-06-12 13:21] VITALS: BP 117/82; PULSE 85; RESP 16; TEMP 36.6; O2SAT 100
--- NOTE | 2022-06-12 13:38 | ED.URI ---
HPI - URI/Sore Throat General Chief Complaint: Upper Respiratory Infection Stated Complaint: fever, sore throat, cough Time Seen by Provider: 06/12/22 13:38 Source: patient and RN notes reviewed Mode of arrival: ambulatory Limitations: no limitations History of Present Illness HPI Narrative: 36 y/o female presented for c/o sinus congestion, low fever, and cough for one week. Temp 100.3 at home. Denies sob, wheezing, vomiting. She returned from [facility] 10 days ago. Taking ibuprofen. Pt has hysterectomy scheduled in 5 days. MD elicited complaint: cough Related Data Home Medications Medication Instructions Recorded Confirmed cholecalciferol (vitamin D3) 125 125 mcg PO DAILY 01/26/21 06/01/22 mcg (5,000 unit) capsule mecobalamin (vitamin B12) 1,000 1,000 mcg PO DAILY 01/26/21 06/01/22 mcg chewable tablet multivitamin 1 tablet PO DAILY 01/26/21 06/01/22 Allergies Allergy/AdvReac Type Severity Reaction Status Date / Time adhesive Allergy Hives Verified 05/19/22 15:00 cat dander Allergy Difficulty Verified 05/19/22 15:00 Breathing thimerosal Allergy Unknown Verified 05/19/22 15:00 Review of Systems Review of Systems: CONSTITUTIONAL: denies malaise EYES: Denies visual changes, redness, or discharge ENT: Reports rhinorrhea, congestion, denies sinus pain, otalgia, sore throat CARDIOVASCULAR: Denies chest pain, palpitations, edema RESPIRATORY: Reports cough, post nasal drainage. Denies dyspnea GASTROINTESTINAL: Denies abdominal pain, nausea, vomiting, diarrhea SKIN: Denies rash PMFSH Past Medical History Medical History Abnormal Pap smear of cervix 01/26/21, ASC-H, HPV pos ASCUS with positive high risk HPV cervical Goiter Optic disc drusen Surgical History Surgical History History of section x1 History of colposcopy 02/10/21, TIFFANY 2 2021 [place] teeth removed Family History Family History Mother Hypertension Social History Social History (Reviewed 06/12/22 @ 16:57 by Ursula Castro, CRISTIANA Smoking status: Never smoker Alcohol intake: current Drinks per week: 3 Alcohol use details: stopped when found out Substance use: never Gender identity (if verbalized by the patient): Female Spiritual care concerns: No Exam Narrative: GENERAL: Ill-appearing, nontoxic EYES: PERRLA, conjunctivae clear ENT: Mucous membranes moist. TM pearly mitchell with light reflex bilaterally; no tragal tenderness. Oropharynx erythematous without lesions or exudate, hoarse voice; no drooling, no trismus, uvula midline. No tripod positioning, muffled voice, soft palate or pharyngeal wall bulging NECK: Supple. No lymphadenopathy CHEST: Clear to auscultation, breath sounds equal. Frequent nonproductive cough. HEART: Regular rate and rhythm. No murmur heard. SKIN: Warm, dry, no rash. NEURO: Alert and oriented x3. Course Course Emergency Course: Patient is aware of diagnosis, understands and agrees to treatment plan. Anticipatory guidance given. Patient agrees to follow-up as directed and is aware of reasons to seek care at the emergency department. Portions of this record may have been created with voice recognition software Level of Care: Express Care Visit Vital Signs Vital signs: Vital Signs Temperature 98 F 06/12/22 13:21 Pulse Rate 85 06/12/22 13:21 Respiratory Rate 16 06/12/22 13:21 Blood Pressure 117/82 06/12/22 13:21 Pulse Oximetry 100 06/12/22 13:21 Temperature 98 F 06/12/22 13:21 Pulse Rate 85 06/12/22 13:21 Respiratory Rate 16 06/12/22 13:21 Blood Pressure 117/82 06/12/22 13:21 Pulse Oximetry 100 06/12/22 13:21 reviewed MDM - URI/Sore Throat MDM Narrative Medical decision making narrative: Advised supportive measures and signs/symptoms to go to the ER. Pt is
== END 2022-06-12 13:58 | disposition home or self-care (01) ==
PROVIDERS: Emergency Provider Nurse Practitioner Family
DX: J06.9 Acute upper respiratory infection, unspecified (principal); E04.9 Nontoxic goiter, unspecified
CPT/HCPCS: 99213; G0463

== ENCOUNTER 2022-07-16 14:41 | Emergency (ER) | payer OTHER, SELFPAY ==
[2022-07-16 14:49] VITALS: BP 105/83; PULSE 92; RESP 16; TEMP 37.1; O2SAT 100
--- NOTE | 2022-07-16 15:35 | ED.GENADULT ---
HPI - General Adult General Chief complaint: Eye Problems Stated complaint: Eyes Irritation Source: patient Mode of arrival: ambulatory Limitations: no limitations History of Present Illness HPI narrative: Patient presents for evaluation of bilateral eye redness and discharge for last 4 days. She states several family members in her home recently had flu including herself. She states that her child has been coughing in her face. She wakes every morning with her eyes crusted shut. She states she has experienced a thick mucopurulent discharge from both eyes. Denies visual disturbance. No additional complaints or concerns. Related Data Home Medications Medication Instructions Recorded Confirmed cholecalciferol (vitamin D3) 125 125 mcg PO DAILY 01/26/21 07/16/22 mcg (5,000 unit) capsule mecobalamin (vitamin B12) 1,000 1,000 mcg PO DAILY 01/26/21 07/16/22 mcg chewable tablet multivitamin 1 tablet PO DAILY 01/26/21 07/16/22 Allergies Allergy/AdvReac Type Severity Reaction Status Date / Time adhesive Allergy Hives Verified 07/16/22 14:48 bacitracin Allergy Hives Verified 07/16/22 14:48 [From Neosporin ([id number])] cat dander Allergy Difficulty Verified 07/16/22 14:48 Breathing neomycin Allergy Hives Verified 07/16/22 14:48 [From Neosporin ([id number])] polymyxin B Allergy Hives Verified 07/16/22 14:48 [From Neosporin ([id number])] thimerosal Allergy Swelling Verified 07/16/22 14:48 Review of Systems Review of Systems: CONSTITUTIONAL: Denies fever, chills, or sweats. EYES: Reports redness to both eyes with thick mucopurulent discharge present ENT: Denies rhinorrhea, congestion, sore throat, or otalgia. CARDIOVASCULAR: Denies chest pain, palpitations, or edema. RESPIRATORY: Denies cough or dyspnea. GASTROINTESTINAL: Denies abdominal pain, nausea, vomiting, or diarrhea. GENITOURINARY: Denies dysuria or hematuria. SKIN: Denies rash or itching. MUSCULOSKELETAL: Denies back pain, joint pain, or myalgia. NEUROLOGIC: Denies headache, numbness, dizziness, or weakness. PSYCHIATRIC: Denies anxiety or depression. [facility] Past Medical History Medical History Abnormal Pap smear of cervix 01/26/21, ASC-H, HPV pos ASCUS with positive high risk HPV cervical Goiter Optic disc drusen Surgical History Surgical History History of section x1 History of colposcopy 02/10/21, TIFFANY 2 2021 [place] teeth removed Family History Family History Mother Hypertension Social History Social History Smoking status: Never smoker Alcohol intake: never Drinks per week: 3 Alcohol use details: stopped when found out Substance use: never Substance use type: does not use Gender identity (if verbalized by the patient): Female Spiritual care concerns: No Exam Narrative: GENERAL: Well-appearing, well-nourished, and in no acute distress. HEAD: Normocephalic, atraumatic. EYES: Bilateral conjunctival injection with some yellow crusting present on eyelashes. ENT: Nares clear, no rhinorrhea or epistaxis. Mucous membranes moist. Oropharynx without tonsillar hypertrophy exudate or other lesions. Bilateral TMs pearly mitchell nonbulging NECK: Supple. No adenopathy or masses. No carotid bruits or JVD CHEST: Clear to auscultation. No respiratory distress. No wheezes rales or rhonchi HEART: Regular rate and rhythm. No murmur heard. Normal peripheral pulses. ABDOMEN: Soft, nontender, nondistended, normal active bowel sounds. EXTREMITIES: Normal range of motion. No edema. SKIN: Warm, dry, no rash. NEURO: No focal deficits. Alert and oriented x3. PSYCH: Normal mood and affect. Course Course Emergency Course: This is
== END 2022-07-16 15:40 | disposition home or self-care (01) ==
PROVIDERS: Emergency Provider Nurse Practitioner
DX: H10.33 Unspecified acute conjunctivitis, bilateral (principal); E04.9 Nontoxic goiter, unspecified
CPT/HCPCS: 99213; G0463

== ENCOUNTER 2022-08-08 11:54 | Emergency (ER) | payer OTHER, SELFPAY ==
[2022-08-08 13:23] VITALS: BP 112/80; PULSE 85; RESP 16; TEMP 36.6; O2SAT 99
--- NOTE | 2022-08-08 14:06 | ED.FEMALEGU ---
HPI - Female Genitourinary General Chief complaint: Urogenital-Female Stated complaint: uti, lower back pain Time Seen by Provider: 08/08/22 14:06 Source: patient and RN notes reviewed Mode of arrival: ambulatory Limitations: no limitations History of Present Illness HPI Narrative: 37-year-old female presents with concern for frequency, dysuria, low back ache. Reports symptoms started Monday. She denies abdominal pain, nausea, fever. She reports mild vaginal irritation without discharge MD elicited complaint: UTI Related Data Home Medications Medication Instructions Recorded Confirmed cholecalciferol (vitamin D3) 125 125 mcg PO DAILY 01/26/21 07/16/22 mcg (5,000 unit) capsule mecobalamin (vitamin B12) 1,000 1,000 mcg PO DAILY 01/26/21 07/16/22 mcg chewable tablet multivitamin 1 tablet PO DAILY 01/26/21 07/16/22 Allergies Allergy/AdvReac Type Severity Reaction Status Date / Time adhesive Allergy Hives Verified 08/08/22 13:53 bacitracin Allergy Hives Verified 08/08/22 13:53 [From Neosporin ([id number])] cat dander Allergy Difficulty Verified 08/08/22 13:53 Breathing neomycin Allergy Hives Verified 08/08/22 13:53 [From Neosporin ([id number])] polymyxin B Allergy Hives Verified 08/08/22 13:53 [From Neosporin ([id number])] thimerosal Allergy Swelling Verified 08/08/22 13:53 Review of Systems Review of Systems: CONSTITUTIONAL: Denies malaise, chills, sweats, or fever. CARDIOVASCULAR: Denies chest pain, palpitations, or edema. RESPIRATORY: Denies cough or dyspnea. GASTROINTESTINAL: Denies abdominal pain, nausea, vomiting, diarrhea GENITOURINARY: Reports dysuria, frequency. Urgency, suprapubic pressure. Denies flank pain or hematuria. SKIN: Denies rash or itching. MUSCULOSKELETAL: Reports bilateral low back ache. Denies myalgia. All systems reviewed & are unremarkable except as noted in HPI and below PMFSH Past Medical History Medical History Abnormal Pap smear of cervix 01/26/21, ASC-H, HPV pos ASCUS with positive high risk HPV cervical Goiter Optic disc drusen Surgical History Surgical History History of section x1 History of colposcopy 02/10/21, TIFFANY 2 2021 [place] teeth removed Family History Family History Mother Hypertension Social History Social History Smoking status: Never smoker Alcohol intake: never Drinks per week: 3 Alcohol use details: stopped when found out Substance use: never Substance use type: does not use Gender identity (if verbalized by the patient): Female Spiritual care concerns: No Comments At time of signature, agree with nursing past medical, surgical, social and family history. There is no relevant family history pertinent to the presenting complaint Exam Narrative: GENERAL: Well-appearing, well-nourished, and in no acute distress. HEAD: Normocephalic. EYES: PERRLA, conjunctivae clear. NECK: Supple. No lymphadenopathy CHEST: Clear to auscultation. No respiratory distress. HEART: Regular rate and rhythm. ABDOMEN: Soft, nontender upon palpation, nondistended, normal active bowel sounds, no palpable or pulsatile masses, no guarding. No CVA tenderness SKIN: Warm, dry, no rash. NEURO: Alert and oriented x3. PSYCH: Normal mood and affect Course Course Emergency Course: Patient is aware of diagnosis, understands and agrees to treatment plan. Anticipatory guidance given. Patient agrees to follow-up as directed and is aware of reasons to seek care at the emergency department. Portions of this record may have been created with voice recognition software Level of Care: Express Care Visit Vital Signs Vital signs: Vital Signs Temperat
== END 2022-08-08 14:13 | disposition home or self-care (01) ==
PROVIDERS: Emergency Provider Nurse Practitioner
DX: N39.0 Urinary tract infection, site not specified (principal); E04.9 Nontoxic goiter, unspecified
CPT/HCPCS: 81003; 87077; 87086; 87186; 99213; G0463

== ENCOUNTER 2023-03-01 00:53 | Day surgery (SDC) | payer OTHER, SELFPAY ==
[2023-02-20 12:31] VITALS: BMI 24.9
--- NOTE | 2023-02-20 12:34 | PC.NURSE ---
Report to the Outpatient Waiting Room, entrance under the green pavilion located off [facility], at time 0600 on date 03/01/23. Planned Procedure Time: 0730. Time changes happen often and if your time is changed the preop area will call you the afternoon before. - You and your visitor will be asked to self-screen and do not enter if you have any COVID symptoms. - A mask is optional within the hospital at this time. Patients may have clear liquids (water, carbonated beverages, clear teas, apple juice) until 3 hours prior to surgery with a maximum of 20 ounces. - No food from midnight until time of surgery Take the following medications with a SIP of water the morning of surgery: NONE DO NOT STOP ANY OF YOUR OTHER PRESCRIPTION MEDICATIONS PRIOR TO SURGERY ?EXCEPT THE FOLLOWING Medications to discontinue per physician: VITAMINS/SUPPLEMENTS Date to take last dose: 02/25/23 Please no make-up, nail tamazight, hairspray, perfume, deodorant, or body powder the day of surgery. No jewelry (including any body piercings) or valuables the day of surgery, leave them at home. Please take a shower or bath the night before, or the morning of, surgery with an antibacterial soap. Wear comfortable, loose fitting clothing. - Jewelry must be removed prior to entering the operating room. Rings and piercings that are not removed may be cut off. - The hospital will not accept responsibility for valuables. - Please leave all valuables, including medications, at home the day of surgery. If you are going home after surgery, a licensed driver license reviewing officer must drive you home. - NO public transportation without another adult if you receive anesthesia. - We recommend that an adult stay with you for 24 hours following discharge. - We also recommend that you do not drive, make important decision, drink alcoholic beverages, or take any drugs that were not prescribed by your health care provider for at least 24 hours after your discharge time. Follow any additional instructions given to you from your surgeon. If you or anyone in your household have experienced Covid symptoms in the past week, please notify your surgeon or the nurse liaison at the phone number below for possible testing. Telephone instructions given to PT - TRAVIS SHETH and asked if any additional questions and then verbalized understanding. Patient advised to call surgeon office or pre surgery nurse liaison [phone] if any additional questions.
--- NOTE | 2023-02-28 16:08 | PM.IMHP ---
H&P: HPI History of Present Illness Date/Time: 02/28/23 16:08 Chief Complaint: Persistent recurrent cervical dysplasia high-grade Narrative: Patient with a history of recurrent high-grade dysplasia. She has had a previous LEEP procedure and has had return of high-grade dysplasia after that procedure. She does not want to get any more evaluations with colposcopy. She desired definitive treatment of the dysplasia with hysterectomy. She has satisfied parity. Her has already had a vasectomy. She declines LEEP or cold knife cone procedures. Review of Systems Review of Systems: All systems reviewed & are unremarkable except as noted in HPI and below Cardiovascular: Cardiovascular: Reports no additional cardiovascular complaints, Denies chest pain and Denies dyspnea Respiratory: Respiratory: Reports no additional respiratory complaints and Denies dyspnea Gastrointestinal: Gastrointestinal: Reports abdominal pain, Denies change in bowel habits, Denies diarrhea, Denies nausea and Denies vomiting Genitourinary: Genitourinary: Reports pelvic pain Musculoskeletal: Musculoskeletal: Reports back pain Integumentary/Breasts: Skin/Breast: Reports system reviewed and no additional complaints, except as docu Neurologic: Reports system reviewed and no additional complaints, except as documented PMFSH Past Medical History Medical History Abnormal Pap smear of cervix 01/26/21, ASC-H, HPV pos ASCUS with positive high risk HPV cervical Goiter Optic disc drusen Surgical History Surgical History History of section x1 History of colposcopy 02/10/21, TIFFANY 2 2021 [place] teeth removed Family History Family History Mother Hypertension Social History Social History Smoking status: Never smoker Alcohol intake: never Drinks per week: 3 Substance use: never Substance use type: does not use Lack of Transportation: No Lack of Food: Never True Current Housing: I Have Housing Concerned About Future Housing: No Difficulty Paying Gas/Electric Bills: No Difficulty Paying for Meds: No Currently Unemployed: No Education: High School Diploma/GED Difficulty w/ Childcare or Family Care: No Living arrangements: with family Gender identity (if verbalized by the patient): Female Spiritual care concerns: No Meds Home Medications and Allergies Home Medications Medication Instructions Recorded Confirmed Type cholecalciferol (vitamin D3) 125 125 mcg PO DAILY 01/26/21 02/20/23 History mcg (5,000 unit) capsule mecobalamin (vitamin B12) 1,000 1,000 mcg PO DAILY 01/26/21 02/20/23 History mcg chewable tablet multivitamin 1 tablet PO DAILY 01/26/21 02/20/23 History Allergies Allergy/AdvReac Type Severity Reaction Status Date / Time adhesive Allergy Hives Verified 02/20/23 12:29 bacitracin Allergy Hives Verified 02/20/23 12:29 [From Neosporin ([id number])] cat dander Allergy Difficulty Verified 02/20/23 12:29 Breathing neomycin Allergy Hives Verified 02/20/23 12:29 [From Neosporin ([id number])] polymyxin B Allergy Hives Verified 02/20/23 12:29 [From Neosporin ([id number])] thimerosal Allergy Swelling Verified 02/20/23 12:29 codeine AdvReac Vomiting Verified 02/20/23 12:30 Exam Const: Orientation/consciousness: oriented to person and oriented to place HENMT: Head: normal to inspection Eyes: General: appearance normal, both eyes and all related structures Resp: Effort & Inspection: normal respiratory effort Auscultation: clear to auscultation bilaterally Cardio: Rate: regular rate Rhythm: regular rhythm GI: Inspection: normal to inspection GI Palp: No Rebound tenderness present Neuro: General:
[2023-03-01] VITALS (9 sets, daily range): BP systolic 95–111; BP diastolic 59–77; PULSE 65–102; RESP 12–18; TEMP 36.2–36.7; O2SAT 96–99; BMI 26.7
[2023-03-01] MEDS: KETOROLAC 15 MG/ML VIAL (*BKC) IV PUSH (07:12)
[2023-03-01] MEDS: ACETAMINOPHEN 500 MG TABLET 1000 MG PO (07:13)
--- NOTE | 2023-03-01 07:19 | WPDANESEPPF ---
Anes - Initial Pre Proc Eval Procedure: Operation Date: 03/01/23 07:30 Proposed Procedures p Robotic Laparoscopic Total Vaginal Hysterectomy with Bilateral Salpingectomy - Jon Gallegos MD Date/Time: 03/01/23 07:19 Surgeon: Jon Gallegos MD Pre Op Diagnosis: TIFFANY II Patient Data Age: 37 Gender: F Height: 1.63 m Weight: 65.8 kg Last Vital Signs Temp 36.7 C 03/01/23 05:55 Pulse 81 03/01/23 05:55 Resp 16 03/01/23 05:55 BP 102/77 03/01/23 05:55 Pulse Ox 99 03/01/23 05:55 O2 Del Method Room Air 03/01/23 05:55 Allergies Allergy/AdvReac Type Severity Reaction Status Date / Time adhesive Allergy Hives Verified 03/01/23 06:29 bacitracin Allergy Hives Verified 03/01/23 06:29 [From Neosporin ([id number])] cat dander Allergy Difficulty Verified 03/01/23 06:29 Breathing neomycin Allergy Hives Verified 03/01/23 06:29 [From Neosporin ([id number])] polymyxin B Allergy Hives Verified 03/01/23 06:29 [From Neosporin ([id number])] thimerosal Allergy Swelling Verified 03/01/23 06:29 codeine AdvReac Vomiting Verified 03/01/23 06:29 Home Medications Medication Instructions Recorded Confirmed Type cholecalciferol (vitamin D3) 125 125 mcg PO DAILY 01/26/21 03/01/23 History mcg (5,000 unit) capsule mecobalamin (vitamin B12) 1,000 1,000 mcg PO DAILY 01/26/21 03/01/23 History mcg chewable tablet multivitamin 1 tablet PO DAILY 01/26/21 03/01/23 History Patient hx anesthesia problems: post op nausea/vomiting Family hx anesthesia problems: none Results Review: All pre-operative results and documents have been reviewed as part of the pre-operative evaluation. [facility] Past Medical History Medical History Abnormal Pap smear of cervix 01/26/21, ASC-H, HPV pos ASCUS with positive high risk HPV cervical Goiter Optic disc drusen Surgical History Surgical History History of section x1 History of colposcopy 02/10/21, TIFFANY 2 2021 [place] teeth removed Family History Family History Mother Hypertension Social History Social History Smoking status: Never smoker Alcohol intake: never Drinks per week: 3 Substance use: never Substance use type: does not use Lack of Transportation: No Lack of Food: Never True Current Housing: I Have Housing Concerned About Future Housing: No Difficulty Paying Gas/Electric Bills: No Difficulty Paying for Meds: No Currently Unemployed: No Education: High School Diploma/GED Difficulty w/ Childcare or Family Care: No Living arrangements: with family Gender identity (if verbalized by the patient): Female Spiritual care concerns: No Anes - Eval Final PreProcedure Day of Procedure 03/01/23 07:19 Patient weight: normal Heart: regular rate and rhythm Lungs: clear to auscultation Airway: Mallampati scale class II Neurological: alert and oriented Last oral intake: >/= 8 hours ASA classification: II Emergent: no Anesthetic plan: proceed Anesthesia type and monitoring: general ETT and standard monitoring Results Review: All pre-operative results and documents have been reviewed as part of the pre-operative evaluation. Informed Consent: The patient's anesthetic plan and its attendant risks and benefits were discussed with the patient/family/POA. Questions were solicited and answers provided to the satisfaction of the patient/family/POA.
--- NOTE | 2023-03-01 07:25 | WPDHPUPDATE1 ---
History and Physical Update Update Date/Time: 03/01/23 07:25 History and Physical has been reviewed, including an updated exam of the patient. There are NO changes in the patient's condition. Risks, benefits, and alternatives have been discussed and questions answered. Patient agrees to proceed with procedure.
[2023-03-01] MEDS: SCOPOLAMINE 1.5 MG PATCH TRANSDERM (07:29)
[2023-03-01] MEDS: LACTATED RINGERS 1,000 ML 30 ML IV CONT ×2 (07:32→09:38)
[2023-03-01] MEDS: ceFAZolin 2 GM/D5W 50 ML 2 GM/50 ML BAG IVPB (07:35)
[2023-03-01] MEDS: BUPivacaine HCL 0.5% PF 30 ML VIAL 20 ML INFILTRATE (08:06)
[2023-03-01 08:09] LABS: Free T4 Free Thyroxine 1.22 ng/mL (0.78-2.19)
--- NOTE | 2023-03-01 09:18 | W.PM.PROC2 ---
Procedure Note - Detailed Date of Procedure 03/01/23 Pre-op Diagnosis Recurrent high grade dysplasia Post-op Diagnosis Same Procedure Performed Laparoscopic robotic assisted total vaginal hysterectomy with bilateral salpingectomy Surgeon Jon Gallegos MD Commission [employer] Anesthesia General Indications Recurrent high grade dysplasia. Findings Normal size uterus, normal appearing fallopian tubes and ovaries. Description of Procedure After informed consent was obtained she was taken to the operating room and general endotracheal anesthesia was administered. She was placed in low lithotomy position. An exam under anesthesia was performed. Uterus palpated normal size, no adnexal masses palpated. She was and prepped and draped in sterile fashion. Sabillon catheter placed in bladder. Attention was turned to the vagina speculum was inserted. Single-tooth tenaculum placed on anterior lip of the cervix the uterus sounded to 9 cm. The cervix was dilated to a 8 Kirk dilator. A size 8uterine manipulator was inserted and secured. A size 3.0 colp cup was secured in the vagina. Then attention was turned to the abdomen with new sterile gloves. .25% marcaine injected subcutaneously. An incision was made horizontal 2 cm above the umbilicus. The subcutaneous tissue was dissected with S retractors. Anterior and posterior fascia grasped with Afua clamp and incised. Peritoneum entered. No adhesions palpated. The fascia sutures were secured with 0 vicryl. The robotic hysson port and camera inserted into abdomen and secured to fascial sutures. A Pneumoperitoneum of 15 mm per mercury was obtained. No abdominal or pelvic adhesions noted. A small incision was made approximately 6 cm lateral to the port on the left side of the port. A size 8mm robotic port was inserted under laparoscopic visualization into the abdomen on the left side. Attention was turned to the right side of the abdomen and Marcaine was injected subcutaneous and an incision was made and a robotic port was inserted under laparoscopic visualization medial and superior to this Marcaine was inserted and a an assistant store manager port was inserted under laparoscopic visualization. Patient was placed in Trendelenburg position. The robotic arms were secured to the ports. Attention was turned to the surgery console. Attention was turned to the right round ligament which was ligated with the vessel sealer the anterior leaf of the broad ligament was dissected anteriorly and the bladder was dissected off the lower uterine segment to the level below where the cold cup was palpated. This was done on the right side. Attention was turned to the right fallopian tube which was ligated from the broad ligament with the vessel sealer. The right ovarian ligament was ligated with the vessel sealer. The a posterior leaf of the broad ligament was further dissected. The uterine vessels on the right were skeletonized. The ascending uterine vessels on the right were cauterized. The uterine vessels were ligated. There was a small adhesion on left pelvic sidewall that were attaching the distal fallopian tube which was lysed to free up the distal fallopian tube. Attention was turned to the left round ligament which was ligated and the anterior leaf of the broad ligament was dissected anteriorly. The rest of the vesicouterine peritoneum was dissected off of the uterus. Once the bladder was dissected below the colp cup then the left fallopian tube was ligated from the broad ligament. The ovarian ligament was ligated. The ascending uterine vessels were ligated with the syncroseal. Posterior leaf of the broad ligament was further dissected posteriorly. The uterine arteries were skeletonized. The uterine arteries were ligated. The cardinal ligaments were ligated. This was done on both sides. An incision was made anterior colpotomy incision was made and this was carried around until the cervix was removed from the vagina. The uterus an
--- NOTE | 2023-03-01 10:29 | SUR.PHASEI ---
Verified with Dr. Gallegos patient should be transferred to OB unit. Dr. Gallegos will assess patient this afternoon to decide if patient meets discharge criteria.
[2023-03-01] MEDS: DEXTROSE 5%/LACTATED RINGERS 1,000 ML 125 ML IV CONT (11:13)
--- NOTE | 2023-03-01 14:53 | OBPPTRN ---
1045 Patient transferred to post room #289 via bed. Support person present. Oriented to unit, room, information board, admission packet and security measures. Patient verbalizes understanding.
== END 2023-03-01 19:45 | disposition home or self-care (01) ==
LOC: ANHSURGERY 05:51 → ANHOB2 18:13
PROVIDERS: Visit Provider Obstetrics & Gynecology
PROC: (CPT 58552; principal; 2023-03-01 07:30)
DX: D06.9 Carcinoma in situ of cervix, unspecified (principal); D25.1 Intramural leiomyoma of uterus; N83.8 Other noninflammatory disorders of ovary, fallopian tube and broad ligament; N73.6 Female pelvic peritoneal adhesions (postinfective); E04.9 Nontoxic goiter, unspecified
CPT/HCPCS: 58552; S2900; 36415; 84439; 84443; 86850; 86900; 86901; 88307; A9270; J0690; J1100; J1170; J1885; J2250; J2405; J2704; J2710; J7030; J7120; J7121

== ENCOUNTER 2024-06-07 13:25 | Outpatient (CLI) | payer OTHER, SELFPAY ==
--- NOTE | ~2024-06-07 | US_ITS ---
EXAMINATION: US thyroid DATE: 06/07/2024 14:31 INDICATION: Nontoxic goiter, unspecified. TECHNIQUE: Multiple ultrasound images of the thyroid were obtained. COMPARISON: Ultrasound 03/10/2022, 11/02/19, 10/27/20 FINDINGS: The right thyroid lobe measures 5.5 x 2.3 x 3.3 cm. The left thyroid lobe measures 4.5 x 1.3 x 1.4 c m. In the right thyroid lobe, there is a 3.6 cm almost entirely cystic nodule (TI-RADS TR1). In the right thyroid lobe, there is a 16 mm predominantly solid, hypoechoic, wider than tall nodule with smo oth margin without echogenic foci (TR4). In the left thyroid lobe, there is a 13 mm solid, hypoechoic , wider than tall nodule with smooth margin without echogenic foci (TR4). In the thyroid isthmus, the re is a 10 mm predominantly solid, hypoechoic, wider than tall nodule with smooth margin without echo genic foci (TR4), stable from 11/02/19. There are multiple subcentimeter nodules in the thyroid. IMPRESSION: 1. Multinodular goiter. Ultrasound-guided fine-needle aspiration of the 16 mm right thyroid nodule is recommended. Reviewed, dictated and finalized at location A. IMPRESSION: 1. Multinodular goiter. Ultrasound-guided fine-needle aspiration of the 16 mm r ight thyroid nodule is recommended.
== END 2024-06-07 13:26 | disposition home or self-care (01) ==
PROVIDERS: Visit Provider Obstetrics & Gynecology
DX: E04.2 Nontoxic multinodular goiter (principal)
CPT/HCPCS: 76536

== ENCOUNTER 2024-06-08 07:53 | Outpatient (CLI) | payer OTHER, SELFPAY ==
[2024-06-08 08:19] LABS: Hematocrit 42.6 % (37.0-47.0); Hemoglobin 14.7 g/dL (12.0-15.0); Mean Corpuscular HGB Conc 34.5 g/dl (32-36); Mean Corpuscular Hemoglobin 29.6 pg (26-34); Mean Corpuscular Volume 85.7 fl (80-100); Mean Platelet Volume 9.7 fl (7.4-10.4); Platelet Count Result 265 k/mm3 (150-375); Red Blood Count 4.97 M/mm3 (4.2-5.4); Red Cell Distribution Width 12.8 % (11.5-14.5); White Blood Count 9.1 K/mm3 (4.5-10.0)
[2024-06-08 08:27] LABS: Alanine Aminotransferase 32 U/L (6-35); Albumin Level 4.7 g/dL (3.5-5.1); Alkaline Phosphatase 188 U/L (38-126); Anion Gap 12 mmol/L (4-12); Aspartate Amino Transferase 27 U/L (14-36); Bilirubin,Total 0.9 mg/dL (0.2-1.3); Blood Urea Nitrogen 12 mg/dL (7-17); Calcium 9.4 mg/dL (8.4-10.2); Carbon Dioxide 25 mmol/L (22-30); Chloride 103 mmol/L (98-107); Cholesterol 198 mg/dL (0-200); Estimated Glomerular Filt Rate > 60; Glucose 91 mg/dL (65-110); HDL Direct 38 mg/dL; Potassium 4.1 mmol/L (3.4-5.0); Sodium 140 mmol/L (137-145); Triglycerides 113 mg/dL (<150)
[2024-06-08 08:37] LABS: LDL Cholesterol Direct 116 mg/dL
[2024-06-08 09:08] LABS: Free T4 Free Thyroxine 0.96 ng/mL (0.78-2.19)
== END 2024-06-08 07:54 | disposition home or self-care (01) ==
LOC: ANHLAB 07:54
PROVIDERS: Visit Provider Obstetrics & Gynecology
DX: Z00.00 Encounter for general adult medical examination without abnormal findings (principal); E04.9 Nontoxic goiter, unspecified
CPT/HCPCS: 36415; 80053; 80061; 84439; 84443; 85027

== ENCOUNTER 2024-08-15 12:45 | Outpatient (CLI) | payer OTHER, SELFPAY ==
--- NOTE | ~2024-08-15 | US_ITS ---
EXAMINATION: US FNA w image guidance DATE: 08/15/2024 14:16 INDICATION: Right thyroid nodule. TECHNIQUE: The procedure and its benefits and risks were discussed with the patient. Risks specifically discusse d included bleeding. The patient verbalized understanding of the risks and agreed to proceed. The nec k was prepped and draped in the usual sterile manner. 1% lidocaine was used for local anesthesia. 6 passes were made with a 25G needle into the lesion under ultrasound guidance. An 18-gauge spinal nee dle was inserted into a cystic nodule in right thyroid lobe under ultrasound guidance. 10 mL brown fl uid was aspirated and discarded. There were no immediate complications. FINDINGS: Grayscale ultrasound images demonstrate needles advanced into a 1.6 cm nodule in superior right thyro id lobe for biopsy. Grayscale ultrasound images demonstrate a needle in a 3.6 cm cystic nodule in rig ht thyroid lobe. IMPRESSION: 1. Ultrasound-guided fine needle aspiration of a 1.6 cm nodule in superior right thyroid lobe for bi opsy. 2. Ultrasound-guided needle aspiration of a 3.6 cm cystic nodule in right thyroid lobe. The fluid was discarded. Reviewed, dictated and finalized at location A. DING INSPECTOR IMPRESSION: 1. Ultrasound-guided fine needle aspiration of a 1.6 cm nodule in superior rig ht thyroid lobe for biopsy. 2. Ultrasound-guided needle aspiration of a 3.6 cm cystic nodule in right thyro id lobe. The fluid was discarded.
== END 2024-08-15 12:46 | disposition home or self-care (01) ==
PROVIDERS: PCP Obstetrics & Gynecology; Visit Provider Otolaryngology
DX: E04.1 Nontoxic single thyroid nodule (principal)
CPT/HCPCS: 10005; 88172; 88173; 88177; 88305

== ENCOUNTER 2025-08-01 10:27 | Outpatient (CLI) | payer OTHER, SELFPAY ==
--- NOTE | ~2025-08-01 | US_ITS ---
US thyroid INDICATION: Thyroid nodules/goiter. TECHNIQUE: Real-time sonographic images of the thyroid gland were obtained. COMPARISON: Comparison to multiple prior studies sequentially, with oldest reviewed study dated 10/27/2020. FINDINGS: The right thyroid lobe measures 5.7 x 1.9 x 1.7 cm. The left thyroid lobe measures 4.9 x 1.5 x 1.4 cm. Thyroid echotexture diffusely heterogeneous with multiple cysts in both lobes. There is a complex mixed solid and cystic mass of the right lobe measuring 0.9 x 0.9 x 0.8 cm which is hypoechoic, wider than tall, smoothly marginated without echogenic foci, TR 3. In the left lobe there is an oval hypoechoic solid mass measuring 10 mm at the isthmus which is wider than tall, smoothly marginated, TR 4. No suspicious masses in either lobe which meet sonographic criteria for biopsy. Normal vascular flow is present. IMPRESSION: 1. No significant change to multinodular goiter allowing for differences of technique. No discrete mass meets sonographic criteria for biopsy. Consider follow-up ultrasound in 12 months. Reviewed, dictated and finalized at location O. TRAINER IMPRESSION: 1. No significant change to multinodular goiter allowing for differences of te chnique. No discrete mass meets sonographic criteria for biopsy. Consider follo w-up ultrasound in 12 months.
== END 2025-08-01 10:28 | disposition home or self-care (01) ==
LOC: MICIMG 10:28
PROVIDERS: PCP Otolaryngology; Visit Provider Otolaryngology
DX: E04.2 Nontoxic multinodular goiter (principal)
CPT/HCPCS: 76536